=== PATIENT | male | born 1940 | race Caucasian/White ===

== ENCOUNTER 2018-04-05 13:00 | Inpatient (IN) | payer OTHER ==
[~2018-04-05] VITALS: Ht 172.7 cm; Wt 95.3 kg
[2018-04-13] MEDS ORDERED: DOCUSATE SODIU100 MG PO (09:26)
[2018-04-13] MEDS ORDERED: CLONAZEPAM1 MG PO (09:32)
[2018-04-13] MEDS ORDERED: PERCOCET 5-3251 EACH PO (09:32)
== END 2018-04-13 14:18 | disposition home or self-care (01) | DRG 454 ==
LOC: SURG 04-12 04:50 → O/R 04-12 04:50 → SURH 04-12 07:00 → SURG 04-12 10:43 → SURH 04-12 13:00 → SURG 04-13 14:18
PROVIDERS: Orthopaedic Surgery Orthopaedic Surgery of the Spine
PROC: 0RG2071 Fusion of 2 or more Cervical Vertebral Joints with Autologous Tissue Substitute, Posterior Approach, Posterior Column, Open Approach (ICD-10-PCS; 2018-04-12)
PROC: 0RT30ZZ Resection of Cervical Vertebral Disc, Open Approach (ICD-10-PCS; 2018-04-12)
PROC: 07DS3ZZ Extraction of Vertebral Bone Marrow, Percutaneous Approach (ICD-10-PCS; 2018-04-12)
PROC: 0RG20A0 Fusion of 2 or more Cervical Vertebral Joints with Interbody Fusion Device, Anterior Approach, Anterior Column, Open Approach (ICD-10-PCS; principal; 2018-04-12 07:00)
DX: M50.01 Cervical disc disorder with myelopathy, high cervical region (principal); M47.12 Other spondylosis with myelopathy, cervical region; I10 Essential (primary) hypertension; E11.9 Type 2 diabetes mellitus without complications; M50.022 Cervical disc disorder at C5-C6 level with myelopathy